=== PATIENT | female | born 1970 | race Caucasian/White ===

== ENCOUNTER 2020-05-11 16:45 | Emergency (ER) | payer SELFPAY ==
[~2020-05-11 16:45] MED LIST: Iopamidol 370 76% 100 ML VIAL ONE
[2020-05-11 17:30] LABS: ALT (SGPT) 11 U/L (8-55); AST (SGOT) 16 U/L (5-34); Albumin 4.4 g/dL (3.5-5.0); Alkaline Phosphatase 89 U/L (40-110); Anion Gap 16 mmol/L (10-20); BUN (Urea Nitrogen) 26 mg/dL (7.0-18.7); Bilirubin, Total 0.3 mg/dL (0.2-1.2); CK (CPK) 116 U/L (29-168); Calc. Creatinine Clearance 0 mL/min (70-130); Calcium 9.2 mg/dL (7.8-10.44); Carbon Dioxide 24 mmol/L (22-29); Chloride 107 mmol/L (98-107); Estimated GFR-MDRD 87; Globulin 2.7 g/dL (2.4-3.5); Glucose 102 mg/dL (70-105); Potassium 3.5 mmol/L (3.5-5.1); Protein, Total 7.1 g/dL (6.0-8.3); Sodium 143 mmol/L (136-145)
[2020-05-11 17:35] LABS: #Basophils 0.1 thou/uL (0.0-0.2); #Eosinphils 0.1 thou/uL (0.0-0.7); #Lymphocytes 3.2 thou/uL (1.20-3.40); #Monocytes 0.5 thou/uL (0.11-0.59); #Neutrophils 6.4 thou/uL (1.40-6.50); %Basophils 0.8 % (0.0-1.0); %Lymphocytes 30.9 % (21.0-51.0); %Monocytes 4.4 % (0.0-10.0); %Neutrophils 62.8 % (42.0-75.0); Hemoglobin 12.8 g/dL (12.0-16.0); Mean Corpuscular HGB CONC 31.5 g/dL (32.0-36.0); Mean Corpuscular Hemoglobin 29.9 pg (27.0-31.0); Mean Corpuscular Volume 94.9 fL (78.0-98.0); Platelet Count 322 thou/uL (130-400); RBC Distribution Width 11.8 % (11.5-14.5); Red Blood Cell (RBC) Count 4.29 mill/uL (4.20-5.40); White Blood Cell (WBC) Count 10.2 thou/uL (4.8-10.8)
--- NOTE | 2020-05-11 17:39 | CT ---
Exam: Head CT without contrast HISTORY: Trauma. Pain. COMPARISON: none FINDINGS: Hemorrhage: No intraparenchymal hemorrhage or extra-axial hematoma. Brain parenchyma: Cortical ramos-white matter differentiation is preserved. No mass effect or midline shift. Basilar cisterns are patent. Ventricular system: Ventricles and sulci are patent and symmetric. Calvarium: Intact. Sinuses and mastoid air cells: Adequate aeration. IMPRESSION: No acute intracranial process.
--- NOTE | 2020-05-11 17:41 | CT ---
Exam: CT cervical spine without contrast HISTORY: Trauma. Pain. COMPARISON: None FINDINGS: No craniocervical dissociation. Appropriate alignment of the lateral masses of C1 and C2. Intact odon toid process Appropriate alignment of the facets. 1.7 mm of anterolisthesis of C3 upon C4. Straightening of cervical lordosis likely due to patient pos ition, muscle spasm or cervical collar. Soft tissue neck structures: No mass, lymphadenopathy or hematoma. No prevertebral soft tissue swelli ng. Upper mediastinum and lung apices: Unremarkable Central spinal canal: Moderate to severe degenerative disc disease at C4-C5 and C5-C6. There is loss of disc space height, sclerosis and osteophyte formation. Associated moderate central canal stenosis and moderate to severe bilateral neural foraminal narrowing. Vertebral bodies: Cervical spine vertebral body height is maintained. No fracture. IMPRESSION: 1. No fracture 2. Spondylolisthesis and degenerative changes as described above. 3. Straightening of normal cervical lordosis as described above. If there is concern for ligamentous injury, consider MRI.
--- NOTE | 2020-05-11 17:48 | CT ---
Exam: Chest CT with contrast HISTORY: Pain. Trauma. Comparison none FINDINGS: Lower neck and axilla: No masses or lymphadenopathy Mediastinum: No mass, lymphadenopathy or hematoma Aorta: Normal caliber. No periaortic fat stranding HEART: Normal heart size. No pericardial effusion Subdiaphragmatic structures: No abnormalities Trachea and central bronchi: Patent Pleural spaces: No pleural effusion Pneumothorax: None LUNGS: Minimal dependent atelectatic changes. No masses or consolidation. Osseous structures: Visualized clavicles, scapula, sternum are intact. The left and right ribs do not demonstrate any post traumatic change. The thoracic spine does not demonstrate any fracture. IMPRESSION: No post traumatic change in the chest. Transcribed Date/Time: 05/11/2020 6:07 PM
[2020-05-11 17:50] LABS: Bilirubin Negative (Negative); Blood, Urine Small (Negative); Clarity Clear (Clear); Glucose, Urine (Dipstick) Negative (Negative); Ketone, Urine Negative (Negative); Leukocyte Negative (Negative); Nitrite Negative (Negative); Protein, Urine (Dipstick) Negative (Neg-Trace); Specific Gravity, Urine 1.033 (1.002-1.036); Urobilinogen 0.2 mg/dL (Less than 2); pH, Urine 5.5 (5.0-9.0)
[2020-05-11 18:04] LABS: Bacteria/HPF None Seen HPF (None Seen); Mucous/LPF 1+ LPF (<2+); WBC/HPF None Seen HPF (0-3)
== END 2020-05-11 18:20 | disposition home or self-care (01) ==
LOC: NAV ERS 16:45
DX: S16.1XXA Strain of muscle, fascia and tendon at neck level, initial encounter (principal); S20.214A Contusion of middle front wall of thorax, initial encounter; F17.210 Nicotine dependence, cigarettes, uncomplicated; Z79.899 Other long term (current) drug therapy; V69.9XXA Occupant (driver) (passenger) of heavy transport vehicle injured in unspecified traffic accident, initial encounter
CPT/HCPCS: 70450; 71260; 72125; 80053; 81003; 81015; 82550; 84484; 85025; 93005; Q9967